=== PATIENT | female | born 1990 | race Caucasian/White ===

== ENCOUNTER 2017-12-14 13:37 | Emergency (ER) | payer BC ==
[~2017-12-14] VITALS: Ht 157.5 cm; Wt 44.0 kg
[2017-12-14 14:56] LABS: HEMATOCRIT 50.3 % (36.0-46.0); HEMOGLOBIN 17.4 G/DL (11.9-15.5); MCHC 34.6 G/DL (30.0-36.0); MCV 83.8 FL (83-99); PLATELET COUNT 343 K/uL (156-360); RBC DIS.WIDTH-CV 13.2 % (11.8-14.6); RBC DIS.WIDTH-SD 40.2 % (39-53); WHITE BLOOD COUNT 12.3 K/uL (4.1-10.2)
[2017-12-14 15:01] LABS: ALBUMIN 5.6 g/dL (3.2-4.8); CHLORIDE 81 mEq/L (99-109); POTASSIUM 2.9 mEq/L (3.7-5.4); SODIUM 134 mEq/L (136-147)
[2017-12-14 15:03] LABS: GLUCOSE 103 mg/dL (70-99)
[2017-12-14 15:04] LABS: TOTAL PROTEIN 10.3 g/dL (6.4-8.3)
[2017-12-14 15:05] LABS: TOTAL BILIRUBIN 1.2 mg/dL (0.0-1.0)
[2017-12-14 15:07] LABS: ALKALINE PHOSPHATASE 70 IU/L (3-129); CREATININE 1.3 mg/dL (0.6-1.3); GFR ESTIMATE (CALCULATED) 53 mL/min/
[2017-12-14 15:08] LABS: UREA NITROGEN (BUN) 54 mg/dL (9-23)
[2017-12-14 15:09] LABS: AST (GOT) 56 IU/L (2-34)
[2017-12-14 15:10] LABS: ALT (GPT) 52 IU/L (3-49)
[2017-12-14 15:17] LABS: QUANTITATIVE HCG < 4.0 MIU/ML
[2017-12-14 17:08] LABS: APPEARANCE SL.HAZY ((CLEAR)); BILIRUBIN NEGATIVE; BLOOD SMALL; COLOR YELLOW ((YELLOW)); GLUCOSE (STRIP) NEGATIVE; KETONES NEGATIVE; LEUKOCYTES NEGATIVE; NITRITE NEGATIVE; PROTEIN (STRIP) NEGATIVE; SPECIFIC GRAVITY 1.026 (1.000-1.030); UROBILINOGEN 0.2 MG/DL (0.2-1.0)
[2017-12-14] MEDS ORDERED: ZOFRAN ODT4 MG PO (17:10)
[2017-12-14 17:15] LABS: BACTERIA NONE SEEN /HPF; CALCIUM OXALATE CRYSTALS 3+ /HPF; EPITHELIAL CELLS 1+ /HPF; HYALINE CASTS 0-5 /LPF; MUCUS NONE SEEN /LPF; RED BLOOD CELLS 0-5 /HPF (0-5); UCUL ADDED? YES
[2017-12-14 19:54] VITALS: BP 113/78
== END 2017-12-14 19:56 | disposition home or self-care (01) ==
LOC: EME 13:37
PROVIDERS: Physician Assistant
DX: R11.2 Nausea with vomiting, unspecified (principal); E87.6 Hypokalemia; F17.200 Nicotine dependence, unspecified, uncomplicated
CPT/HCPCS: 80053; 81003; 84702; 85027; 87086; 93005; 99281; 99285; J2405; J3480; J7030